=== PATIENT | male | born 1980 | race Caucasian/White ===

== ENCOUNTER 2023-12-09 19:20 | Emergency (ER) | payer SELFPAY | END 2023-12-09 22:55 | disposition home or self-care (01) | LOC: MW.ED 19:20 | DX: M79.674 Pain in right toe(s) (principal); M25.511 Pain in right shoulder; B35.3 Tinea pedis; I10 Essential (primary) hypertension; E78.00 Pure hypercholesterolemia, unspecified; E11.9 Type 2 diabetes mellitus without complications; Z75.8 Other problems related to medical facilities and other health care; Z91.018 Allergy to other foods; Z79.84 Long term (current) use of oral hypoglycemic drugs; Z79.899 Other long term (current) drug therapy | CPT/HCPCS: 71046; 71046-26; 73660-26-T5; 73660-T5; 99283 ==